=== PATIENT | female | born 1990 | race Caucasian/White ===

== ENCOUNTER 2020-11-22 15:06 | Outpatient (CLI) | payer OTHER ==
[~2020-11-22] VITALS: Ht 170.2 cm; Wt 101.4 kg
[2020-11-22 15:20] VITALS: BP 157/76; PULSE 88; TEMP 98.1
[2020-11-22] MEDS ORDERED: PROCARDIA XL 3030 MG PO (15:27)
[2020-11-22] MEDS ORDERED: TRANDATE 200MG200 MG PO (15:27)
[2020-11-22] MEDS ORDERED: MAGNESIUM200 MG PO (15:28)
[2020-11-22] MEDS ORDERED: ASPIRIN 81M81 MG/TA2 PO (15:29)
[2020-11-22] MEDS ORDERED: FERROUS GL325 MG/TAB (15:31)
[2020-11-22] MEDS ORDERED: NEURONTIN600 MG/TAB PO (15:32)
[2020-11-22] MEDS ORDERED: ZOLOFT 100MG100 MG PO (15:33)
[2020-11-22] MEDS ORDERED: PAMELOR50 MG PO (15:34)
[2020-11-22] MEDS ORDERED: PERCOCET 325 MG1 TA2 PO (15:35)
[2020-11-22] MEDS ORDERED: PRENATAL FORMU1 EAC3 PO (15:35)
[2020-11-22] MEDS ORDERED: FOLIC ACID 11 MG/TA1 PO (15:36)
[2020-11-22] MEDS ORDERED: VITAMIND3 5000 PO (15:37)
[2020-11-22 16:00] VITALS: BP 146/68; PULSE 79
--- NOTE | 2020-11-22 16:23 | NUR ---
1520 PATIENT HERE FOR COMPLAINTS OF HEADACHE FOR PAST MONTH THAT HAS CONTINUED. RIGHT UPPER QUAD PAIN STARTED TODAY. EFM 150 BABY VEREY ACTIVE. ASSESSMENT COMPLETED. NO CONTRACTIONS ON MONITOR. DR SMALLS CALLED AND UPDATED. HE WILL REVIEW HER PRENATELS AT THE OFFICE. ORDERS FOR LABS AT THIS TIME.
--- NOTE | 2020-11-22 16:35 | NUR ---
1610 PATIENT UP TO BATHROOM. AND LAB AT BEDSIDE.
[2020-11-22 16:38] LABS: HEMOGLOBIN 10.8 g/dl (12.5-16.0); MEAN CELL VOLUME 88 fl (80.0-100.0); MEAN CORPUSCULAR HEMOGLOBIN 28 pg (27.0-31.0); MEAN CORPUSCULAR HGB CONC 32 g/dl (33.0-37.0); PLATELET COUNT 383 K/mm3 (130-400); RED BLOOD COUNT 3.89 M/mm3 (4.10-5.30); REDCELL DISTRIBUTION WIDTH-CV 14.3 % (11.5-14.5)
[2020-11-22 16:40] LABS: HEMATOCRIT 34.1 % (37.0-47.0)
[2020-11-22 16:41] LABS: ALBUMIN 3.6 gm/dL (3.5-5.0); BILIRUBIN,TOTAL 0.2 mg/dL (0.0-1.0); CALCIUM 8.8 mg/dL (8.4-10.2); CREATININE, serum 0.47 (0.52-1.25); POTASSIUM 3.8 mmol/L (3.4-5.0)
--- NOTE | 2020-11-22 17:00 | NUR ---
1700 PATIENT RESTS IN BED EATING ICE CHIPS
[2020-11-22 17:01] VITALS: BP 134/62; PULSE 86
[2020-11-22 17:03] LABS: BUDDING YEAST Present /hpf; PH 6 (5-8); SQUAMOUS EPITHELIAL 0-2 /hpf; URINE APPEARANCE Hazy; URINE BACTERIA Rare /hpf; URINE BILIRUBIN Negative (NEGATIVE); URINE BLOOD Negative (NEGATIVE); URINE COLOR Yellow; URINE GLUCOSE Negative (NEGATIVE); URINE KETONE Negative (NEGATIVE); URINE LEUKOCYTE ESTERASE Negative (NEGATIVE); URINE NITRATE Negative (NEGATIVE); URINE PROTEIN(semi-quant) Negative (NEGATIVE); URINE RBC 0-2 /hpf; URINE UROBILINOGEN Negative (NEGATIVE)
[2020-11-22 17:12] VITALS: PULSE 76
[2020-11-22 17:12] LABS: COLLECTION METHOD CLEAN CATCH
--- NOTE | 2020-11-22 17:13 | NUR ---
1715 ALL DISCHARGE INSTRUCTIONS GIVEN TO PATIENT WITH VERBAL UNDERSTANDING. PATIENT DISMISSED AT THIS TIME.
== END 2020-11-22 17:15 | disposition home or self-care (01) ==
LOC: LDRO 15:06
PROVIDERS: Obstetrics & Gynecology
DX: O26.892 Other specified pregnancy related conditions, second trimester (principal); R51.9 Headache, unspecified; R10.11 Right upper quadrant pain; Z3A.24 24 weeks gestation of pregnancy

== ENCOUNTER 2021-11-27 19:55 | Emergency (ER) | payer OTHER ==
[~2021-11-27] VITALS: Ht 152.4 cm; Wt 74.5 kg
[~2021-11-27 19:55] MED LIST: ASPIRIN 81M81 MG/TA2 PO; FERROUS GL325 MG/TAB; FOLIC ACID 11 MG/TA1 PO; MAGNESIUM200 MG PO; NEURONTIN600 MG/TAB PO; PAMELOR50 MG PO; PERCOCET 325 MG1 TA2 PO; PRENATAL FORMU1 EAC3 PO; PROCARDIA XL 3030 MG PO; PROMETHAZINE12.5 M5 PO; TRANDATE 200MG200 MG PO; VITAMIND3 5000 PO; ZOLOFT 100MG100 MG PO
[2021-11-27 20:04] VITALS: TEMP 98.2
[2021-11-27 21:09] LABS: BASO % 0.3 % (0.0-2.0); EOS # 0.2 K/mm3 (0.0-0.7); GRAN # 3.6 K/mm3 (1.4-6.5); HEMOGLOBIN 10.5 g/dl (12.5-16.0); LYMPH # 4.4 K/mm3 (1.2-3.4); LYMPH % 50.5 % (20.0-51.0); MEAN CELL VOLUME 84 fl (80.0-100.0); MEAN CORPUSCULAR HEMOGLOBIN 27 pg (27-31); MEAN CORPUSCULAR HGB CONC 32 g/dl (33.0-37.0); MONO # 0.5 K/mm3 (0.1-0.6); MONO % 5.7 % (1.7-9.3); PLATELET COUNT 407 K/mm3 (130-400); RED BLOOD COUNT 3.95 M/mm3 (4.10-5.30); REDCELL DISTRIBUTION WIDTH-CV 14.5 % (11.5-14.5)
[2021-11-27 21:24] LABS: ALBUMIN 3.1 gm/dL (3.5-5.0); BILIRUBIN,TOTAL 0.3 mg/dL (0.2-1.2); CALCIUM 8.6 mg/dL (8.4-10.2); CREATININE, serum 0.7 mg/dL (0.57-1.11); POTASSIUM 3.1 mmol/L (3.5-4.5); TOTAL PROTEIN 7.1 gm/dL (6.2-8.1)
[2021-11-27] MEDS ORDERED: PRILOSEC 20MG20 MG PO (23:06)
[2021-11-27 23:09] LABS: COLLECTION METHOD CLEAN CATCH
[2021-11-27 23:14] LABS: MUCOUS Present (NOT PRESENT); PH 6 (5-8); URINE APPEARANCE Clear (CLEAR/HAZY); URINE BACTERIA None Seen /hpf (NONE SEEN); URINE BILIRUBIN Negative (NEGATIVE); URINE BLOOD Negative (NEGATIVE); URINE COLOR Straw (YELLOW); URINE GLUCOSE Negative (NEGATIVE); URINE KETONE Negative (NEGATIVE); URINE LEUKOCYTE ESTERASE Negative (NEGATIVE); URINE NITRATE Negative (NEGATIVE); URINE PROTEIN(semi-quant) Negative (NEGATIVE); URINE RBC None Seen /hpf (0-2); URINE UROBILINOGEN Negative (NEGATIVE)
[2021-11-27 23:36] VITALS: BP 114/70; PULSE 94
== END 2021-11-27 23:51 | disposition home or self-care (01) ==
LOC: COL.ER 19:55
PROVIDERS: Physician Assistant
DX: R10.9 Unspecified abdominal pain (principal); Z98.84 Bariatric surgery status; Z90.49 Acquired absence of other specified parts of digestive tract; Z32.02 Encounter for pregnancy test, result negative
CPT/HCPCS: C9113; J2270; J2550; J7030; Q9967